=== PATIENT | female | born 1940 | race African-American/Black ===

== ENCOUNTER 2023-12-01 09:02 | Emergency (ER) | payer BC ==
[~2023-12-01] VITALS: Ht 165.1 cm; Wt 72.6 kg
[2023-12-01 09:04] VITALS: O2SAT 97
[2023-12-01 13:09] VITALS: BP 141/82; PULSE 89; RESP 15; TEMP 98.2
== END 2023-12-01 13:09 | disposition home or self-care (01) ==
LOC: ER 09:02
DX: K59.00 Constipation, unspecified (principal)
CPT/HCPCS: 99283